=== PATIENT | female | born 1950 | race Caucasian/White ===

== ENCOUNTER 2016-11-04 09:56 | Emergency (ER) | payer MEDICARE, BC ==
--- NOTE | 2016-11-04 11:33 | UC ---
Throat Pain/Nasal David HPI - HPI Summary HPI Summary: Patient has a large area of puss on the left side of her throat. started having ear pain today. - History of Current Complaint Chief Complaint: UCRespiratory Time Seen by Provider: 11/04/16 11:20 Hx Obtained From: Patient ?: No Onset/Duration: Sudden Onset, Lasting Days Severity: Moderate Pain Intensity: 6 Pain Scale Used: 0-10 Numeric Cough: Nonproductive Associated Signs & Symptoms: Positive: Dysphagia - Epiglottits Risk Factors Epiglottis Risk Factors: Negative - Allergies/Home Medications Allergies/Adverse Reactions: Allergies Allergy/AdvReac Type Severity Reaction Status Date / Time Penicillins Allergy Vomiting Verified 07/19/16 13:13 Tetracycline Allergy See Comment Verified 07/19/16 13:13 PMH/Surg Hx/FS Hx/Imm Hx Previously Healthy: Yes Endocrine History Of: Reports: Thyroid Disease Denies: Diabetes Cardiovascular History Of: Denies: Cardiac Disorders, Hypertension Respiratory History Of: Denies: COPD, Asthma GI/ History Of: Denies: Ulcer - Surgical History Surgical History: Yes Surgery Procedure, Year, and Place: THYROID TUMOR-1979, CSECTION X 2 - Family History Known Family History: Positive: Hypertension Family History: NON CONTRIBUTORY - Social History Alcohol Use: None Substance Use Type: None Smoking Status (MU): Former Smoker When Did the Patient Quit Smoking/Using Tobacco: AT AGE 25 Review of Systems Constitutional: Negative Skin: Negative Eyes: Negative ENT: Sore Throat, Ear Ache Respiratory: Negative Cardiovascular: Negative Gastrointestinal: Negative Genitourinary: Negative Motor: Negative Neurovascular: Negative Musculoskeletal: Negative Neurological: Negative Psychological: Negative All Other Systems Reviewed And Are Negative: Yes Physical Exam Triage Information Reviewed: Yes Appearance: Well-Appearing, Well-Nourished, Pain Distress Vital Signs: Initial Vital Signs Temp 97.8 F 11/04/16 11:15 Pulse 57 11/04/16 11:15 Resp 18 11/04/16 11:15 Pulse Ox 100 11/04/16 11:15 Vital Signs Reviewed: Yes Eye Exam: Normal Eyes: Positive: Conjunctiva Clear ENT Exam: Normal ENT: Positive: Normal ENT inspection, Pharyngeal erythema, TMs normal, Tonsillar exudate - large tonsolith on left tonsil Dental Exam: Normal Respiratory Exam: Normal Respiratory: Positive: Chest non-tender, Lungs clear, Normal breath sounds Cardiovascular Exam: Normal Cardiovascular: Positive: RRR, No Murmur, Pulses Normal Abdomen Description: Positive: Nontender, No Organomegaly, Soft Bowel Sounds: Positive: Present Musculoskeletal: Positive: Strength Intact, ROM Intact, No Edema Neurological Exam: Normal Psychological Exam: Normal Skin Exam: Normal Throat Pain/Nasal Course/Dx - Course Course Of Treatment: hx obtianed, medications reviewed, exam performed, was able to dislodge the tonsil stone with end of qtip, pt tolerated well. instant relief. medication prescribed. - Differential Dx/Diagnosis Differential Diagnosis/HQI/PQRI: Influenza, Laryngitis, Pharyngitis, Sinusitis, Tonsillitis, URI Provider Diagnoses: pharyngitis. tonsilolith Discharge - Discharge Plan Condition: Stable Disposition: HOME Patient Education Materials: Pharyngitis (ED) Additional Instructions: continue with the salt water gargles. we were able to remove the tonsilolith without difficulty. take the 5 days of prednisone to reduce the inflammation in your throat and ears.
== END 2016-11-04 11:50 | disposition home or self-care (01) ==
LOC: UCEAST 09:56
DX: J02.9 Acute pharyngitis, unspecified (principal); J35.8 Other chronic diseases of tonsils and adenoids; Z87.891 Personal history of nicotine dependence
CPT/HCPCS: 99211; G0463

== ENCOUNTER 2019-02-18 12:46 | Emergency (ER) | payer MEDICARE, BC ==
[2019-02-18 13:17] VITALS: BP 105/63
--- NOTE | 2019-02-18 15:16 | ED ---
Throat Pain/Nasal Congestion - HPI Summary HPI Summary: 68-year-old female presents with ear pain for the past couple days. She admits to occasional posterior headache. States that she's been having some neck pain. No weakness. No difficulties with speech. no difficulty swallowing or sore throat. No chest pain or shortness breath. She does admits to blurry vision but states that has been having episodes blurry vision in the past. Nothing different about this blurry vision as states is her cataracts. She states her headache was more intense and is now less intense. - History of Current Complaint Chief Complaint: UCEar Time Seen by Provider: 02/18/19 14:34 - Allergies/Home Medications Allergies/Adverse Reactions: Allergies Allergy/AdvReac Type Severity Reaction Status Date / Time Penicillins Allergy Vomiting Verified 02/18/19 13:17 Tetracyclines Allergy stool turn Verified 02/18/19 13:17 white Home Medications: Home Medications Aspirin 325 MG TAB* 1 tab PO DAILY 02/18/19 [History Confirmed 02/18/19] PMH/Surg Hx/FS Hx/Imm Hx Endocrine/Hematology History: Reports: Hx Thyroid Disease Denies: Hx Diabetes Cardiovascular History: Denies: Hx Hypertension Respiratory History: Denies: Hx Asthma, Hx Chronic Obstructive Pulmonary Disease (COPD) GI History: Denies: Hx Ulcer - Cancer History Cancer Type, Location and Year: THYROID CA 1979 - Surgical History Surgery Procedure, Year, and Place: THYROID TUMOR-1979, CSECTION X 2 Infectious Disease History: No Infectious Disease History: Denies: Hx Clostridium Difficile, Hx Hepatitis, Hx Human Immunodeficiency Virus (HIV), Hx of Known/Suspected MRSA, Hx Shingles, Hx Tuberculosis, Hx Known/ Suspected VRE, Hx Known/Suspected VRSA, History Other Infectious Disease, Traveled Outside the [place] in Last 30 Days - Family History Known Family History: Positive: Hypertension Family History: NON CONTRIBUTORY - Social History Alcohol Use: None Substance Use Type: Reports: None Hx Tobacco Use: No Smoking Status (MU): Former Smoker Review of Systems Negative: Fever Positive: Ear Ache Negative: Chest Pain Negative: Shortness Of Breath Positive: Myalgia - neck pain Positive: Headache All Other Systems Reviewed And Are Negative: Yes Physical Exam Triage Information Reviewed: Yes Vital Signs On Initial Exam: Initial Vitals Temp Pulse Resp BP Pulse Ox 98.4 F 67 16 105/63 100 02/18/19 13:15 02/18/19 13:15 02/18/19 13:15 02/18/19 13:15 02/18/19 13:15 Vital Signs Reviewed: Yes Appearance: Positive: Well-Appearing Skin: Positive: Warm, Dry Head/Face: Positive: Normal Head/Face Inspection Eyes: Positive: Normal, EOMI, [place], Conjunctiva Clear ENT: Positive: Pharynx normal, TM bulging - left, TM red - left Neck: Positive: Supple, Nontender, No Lymphadenopathy. Negative: Nuchal Rigidity, Other: - full ROM neck Respiratory/Lung Sounds: Positive: Clear to Auscultation, Breath Sounds Present Cardiovascular: Positive: Normal, RRR Abdomen Description: Positive: Nontender, Soft Bowel Sounds: Positive: Present Musculoskeletal: Positive: Normal Neurological: Positive: Sensory/Motor Intact, Alert, Oriented to Person Place, Time, CN Intact II-III, Normal Gait Psychiatric: Positive: Normal - Garrett Coma Scale Best Eye Response: 4 - Spontaneous Best Motor Response: 6 - Obeys Commands Best Verbal Response: 5 - Oriented Coma Scale Total: 15 Diagnostics - Vital Signs Vital Signs Temp Pulse Resp BP Pulse Ox 02/18/19 13:15 98.4 F 67 16 105/63 100 - Laboratory Lab Statement: Any lab studies that have been ordered have been reviewed, and results considered in the medical decision making process. - CT brain CT Interpretation Completed By: Radiologist Summary of CT Findings: no acute findings EENT Course/Dx - Course Course Of Treatment: 68-year-old female presents with ear pain for the past couple days. She admits to occasional posterior headache. States that she's been having some neck pain. No weakness. No difficulties with speech. no difficulty swallowing or sore throat. No chest pain or shortness breath. She does admits to blurry vision but states that has been having episodes blurry vision in the past. Nothing different about this blurry vision as states is her cataracts. She states her headache was more intense and is now less intense. On exam has normal neuro exam. No focal defect noted. Left ear edematous and erythematous. will headache got CT. CT brain normal. Full range of motion of the neck. No fever. no signs of meningitis. we'll have follow-up with primary. warned if anything changes to go to the ER. We'll treat with azithromycin for ear infection. Patient understands agrees with plan. - Differential Diagnoses Differential Diagnoses: Otitis Externa, Otitis Media, URI/Bronchitis - Diagnoses Provider Diagnoses: Otitis media Discharge - Sign-Out/Discharge Documenting (check all that apply): Patient Departure All imaging exams completed and their final reports reviewed: Yes - Discharge Plan Condition: Good Disposition: HOME Prescriptions: Azithromycin TAB* [Zithromax TAB (Z-SUNITA) 250 mg #6 tabs] 2 tab PO .TODAY, THEN 1 DAILY #1 sunita Patient Education Materials: Ear Infection (ED) Referrals: No Primary Care Phys,NOPCP [Primary Care Provider] - Additional Instructions: take azithromycin two tablets day 1, 1 tablet day 2-5, Take tyenlol as needed for pain apply heat or ice to neck Follow up with primary within 5 days Return to ED if develop any new or worsening symptoms - Billing Disposition and Condition Condition: GOOD Disposition: Home
== END 2019-02-18 15:32 | disposition home or self-care (01) ==
LOC: UCEAST 12:46
DX: H66.92 Otitis media, unspecified, left ear (principal); E07.9 Disorder of thyroid, unspecified; Z88.1 Allergy status to other antibiotic agents; Z88.0 Allergy status to penicillin; Z87.891 Personal history of nicotine dependence
CPT/HCPCS: 70450; 99212; G0463

== ENCOUNTER 2019-08-17 09:47 | Emergency (ER) | payer MEDICARE, BC ==
--- OUTSIDE RECORDS SUMMARY | 2019-08-17 09:59 | XMS REPORT | Continuity of Care Document ---
:1950 External Reference #:[id number] Author Name Julienne Shine M.D. (transmitted by agent of provider Inge Simmons) Address [address] [facility] [place] [address] Care Team Providers Name Role Phone Henrique Kaiser MD - Family Care Team Information [employer] Machine Operator [phone] Medicine Problems Active Problems Provider Date Localized, primary osteoarthritis of the pelvic Julienne Shine M.D. Onset: region and thigh Social History Type Date Description Comments Sex Unknown Tobacco Use Start: Unknown End: Unknown Patient is a former smoker Smoking Status Reviewed: 08/15/19 Patient is a former smoker Allergies, Adverse Reactions, Alerts Active Allergies Reaction Severity Comments Date Penicillin severe 08/15/2019 Medications Description No Active Medications Immunizations Description No Information Available Vital Signs Date Vital Result Comment 08/15/2019 2:28pm Height 62 inches 5'2" Weight 171.00 lb Heart Rate 74 /min BP Systolic 156 mmHg BP Diastolic 82 mmHg Body Temperature 97.9 F Pain Level 5 BMI (Body Mass Index) 31.3 kg/m2 Results Description No Information Available Procedures Description No Information Available Medical Devices Description No Information Available Encounters Description No Information Available Assessments Date Code Description Provider 08/15/2019 M25.552 Pain in left hip Julienne Shine M.D. 08/15/2019 M16.12 Unilateral primary osteoarthritis, left hip Julienne Shine M.D. Plan of Treatment 08/15/2019 - Julienne Shine M.D.M25.552 Pain in left hipFollow up:Follow up: 7- 10 days before [id number] Unilateral primary osteoarthritis, left hip Functional Status Description No Information Available Mental Status Description No Information Available Referrals Description No Information Available
--- OUTSIDE RECORDS SUMMARY | 2019-08-17 09:59 | XMS REPORT | Continuity of Care Document ---
:1950 External Reference #:[id number] Author Name Henrique Kaiser MD Address [address] [place] [address] Care Team Providers Name Role Phone Henrique Kaiser MD - Family Care Team Information Yard Brakeman Medicine Problems Description No Information Available Social History Type Date Description Comments Sex Unknown Tobacco Use Start: Unknown End: Unknown Patient is a former smoker Smoking Status Reviewed: 08/01/19 Patient is a former smoker Allergies, Adverse Reactions, Alerts Active Allergies Reaction Severity Comments Date Penicillin Abdominal pain, Diarrhea, Nausea Severe 08/01/2019 Medications Active Medications SIG Qnty Indications Ordering Provider Date Acetaminophen ER take one tablet Unknown 650mg three times a Tablets ER day as needed for pain Immunizations Description No Information Available Vital Signs Date Vital Result Comment 08/01/2019 3:04pm BP Systolic 126 mmHg BP Diastolic 88 mmHg Heart Rate 74 /min Body Temperature 98.4 F Respiratory Rate 16 /min Height 60.5 inches 5'0.50" Weight 167.00 lb BMI (Body Mass Index) 32.1 kg/m2 Results Description No Information Available Procedures Description No Information Available Medical Devices Description No Information Available Encounters Description No Information Available Assessments Date Code Description Provider 08/01/2019 M16.12 Unilateral primary osteoarthritis, left Henrique Kaiser MD hip Plan of Treatment 08/01/2019 - Henrique Kaiser, [id number] Unilateral primary osteoarthritis, left hipAllComments:Medication Management Patient Understands medications she's taking? Yes No Are there Barriers to Adherence? Yes No Has the patient been asked about herbal supplements and therapies, and OTC meds? Yes No Functional Status Description No Information Available Mental Status Description No Information Available Referrals Refer to Reason for Referral Status Appt Date Julienne Shine MD left hip pain /OA jw Created 08/15/2019 [facility] [address] [address] [phone]
--- NOTE | 2019-08-17 10:30 | ED ---
Shortness of Breath - HPI Summary HPI Summary: Pt is a 69 y/o F presenting to the ED with a chief complaint of shortness of breath. She states she had a recent URI over the past couple of weeks, and began feeling better about 3 days ago. However, her shortness of breath did not resolve, and it is notably worse in the morning. She also notes a subjective fever, nonproductive cough, and fatigue. She denies chest pain. No exertional dyspnea. No hx CHF. States her BP is high when she is sick and normal when she feels OK. Daughter states she does not follow up often w PCP. No hx PE, DVT. No orthopnea/PND. Ambulates w walker - History of Current Complaint Chief Complaint: EDShortnessOfBreath Time Seen by Provider: 08/17/19 10:04 Hx Obtained From: Patient Onset/Duration: Gradual Onset, Lasting Weeks, Still Present Timing: Constant Current Severity: Moderate Dyspnea At: Rest Aggravating Factors: Nothing Alleviating Factors: Nothing Associated Signs & Symptoms: Cough (Nonproductive), Fever - subjective - Allergy/Home Medications Allergies/Adverse Reactions: Allergies Allergy/AdvReac Type Severity Reaction Status Date / Time Penicillins Allergy Vomiting Verified 08/17/19 09:52 Home Medications: Home Medications Ascorbic Acid TAB* [Vitamin C TAB*] 500 mg PO DAILY 08/17/19 [History Confirmed 08/17/19] Thiamine TAB* [Vitamin B-1 TAB*] 50 mg PO DAILY 08/17/19 [History Confirmed ] Vitamin E CAP* 200 unit PO DAILY 08/17/19 [History Confirmed 08/17/19] PMH/Surg Hx/FS Hx/Imm Hx Previously Healthy: Yes Endocrine/Hematology History: Reports: Hx Thyroid Disease Denies: Hx Diabetes Cardiovascular History: Denies: Hx Hypertension Respiratory History: Denies: Hx Asthma, Hx Chronic Obstructive Pulmonary Disease (COPD) GI History: Denies: Hx Ulcer - Cancer History Cancer Type, Location and Year: THYROID CA 1979 - Surgical History Surgery Procedure, Year, and Place: THYROID TUMOR-1979, CSECTION X 2 Infectious Disease History: No Infectious Disease History: Denies: Hx Clostridium Difficile, Hx Hepatitis, Hx Human Immunodeficiency Virus (HIV), Hx of Known/Suspected MRSA, Hx Shingles, Hx Tuberculosis, Hx Known/ Suspected VRE, Hx Known/Suspected VRSA, History Other Infectious Disease, Traveled Outside the [place] in Last 30 Days - Family History Known Family History: Positive: Hypertension - Social History Alcohol Use: Rare Substance Use Type: Reports: None Hx Tobacco Use: No Smoking Status (MU): Former Smoker Review of Systems Positive: Fever - subjective, Fatigue Negative: Chest Pain Positive: Shortness Of Breath, Cough All Other Systems Reviewed And Are Negative: Yes Physical Exam - Summary Physical Exam Summary: Constitutional: Well-developed, Well-nourished, Alert. (-) Distressed Skin: Warm, Dry HENT: Normocephalic; Atraumatic Eyes: Conjunctiva normal Neck: Musculoskeletal ROM normal neck. (-) JVD, (-) Stridor, (-) Nuchal rigidity Cardio: Rhythm regular, rate normal, Heart sounds normal; Intact distal pulses; Radial pulses are 2+ and symmetric. (-) Murmur Pulmonary/Chest wall: Effort normal. (-) Respiratory distress, (-) Wheezes, (-) Rales Abd: Soft, (-) tenderness, (-) Distension, (-) Guarding, (-) Rebound Musculoskeletal: (-) Edema Lymph: (-) Cervical adenopathy Neuro: Alert, Oriented x3 Psych: Mood and affect Normal Triage Information Reviewed: Yes Vital Signs On Initial Exam: Initial Vitals Temp Pulse Resp BP Pulse Ox 97.7 F 68 16 189/97 97 08/17/19 09:48 08/17/19 09:48 08/17/19 09:48 08/17/19 09:48 08/17/19 09:48 Vital Signs Reviewed: Yes Procedures - Sedation Patient Received Moderate/Deep Sedation with Procedure: No Diagnostics - Vital Signs Vital Signs Temp Pulse Resp BP Pulse Ox 08/17/19 10:21 16 08/17/19 09:48 97.7 F 68 16 189/97 97 - Laboratory Result Diagrams: 08/17/19 10:54 08/17/19 10:54 Lab Statement: Any lab studies that have been ordered have been reviewed, and results considered in the medical decision making process. - Radiology CXR Radiology Interpretation Completed By: Radiologist Summary of Radiographic Findings: Stigmata of obstructive lung disease. No acute pulmonary or cardiac process evident. ED physician has reviewed this report. - EKG 1010 Cardiac Rate: NL - 60bpm EKG Rhythm: Sinus Rhythm ST Segment: Normal Ectopy: None Summary of EKG Findings: An EKG at 1010 reveals normal sinus rhythm at 60bpm with nml axis, nml intervals, and T-wave inversions in lead III. No STEMI. No acute changes. ED physician has reviewed and interpreted this report. Re-Evaluation - Re-Evaluation 1st re-eval Re-Evaluation Time: 12:05 Change: Improved Comment: Pt feels fine and has been ambulating to the restroom. Will give 10mg Hydralazine for her BP. Second Eval Re-Evaluation Time: 12:50 Change: Improved - BP 150's. Given lisinopril to go home w. Course/Dx - Course Course Of Treatment: 69 y/o F p/w SOB. Shortness of breath ddx: Most likely deconditioning from recent illness. Also consider: COPD exacerbation/asthma - no h/o COPD, no wheezing on exam. Low suspicion. PNA - no sputum production, no fevers or chills. No leukocytosis. CXR w/o infiltrate. Low suspicion. PTX - breath sounds equal, no risk factors for PTX, CXR w/o e/o PTX. ACS - no CP, no EKG changes, initial trop not elevated. Non exertional dyspnea. Low suspicion. CHF - no h/o CHF, no VALENZUELA or orthopnea, no BLE edema, CXR w/o pulmonary edema. PE - no risk factors for PE, no unilateral leg swelling. BP elevated to 200s. Will give hydralazine send home w Lisinopril. Needs to follow up w PCP. - Diagnoses Provider Diagnoses: Shortness of breath, Hypertension Discharge ED - Sign-Out/Discharge Documenting (check all that apply): Patient Departure - Discharge Plan Condition: Stable Disposition: HOME Prescriptions: Lisinopril TAB* [Prinivil TAB 5 MG*] 5 mg PO DAILY 30 Days #30 tab Patient Education Materials: Hypertension (ED), Shortness of Breath (ED) Referrals: Henrique Kaiser MD [Primary Care Provider] - Additional Instructions: You were seen in the emergency department for shortness of breath. Your EKG ( heart tracing), labs and chest x-ray did not show any cause for this. Important that you follow up with you primary care doctor in the next 1-2 days to help schedule an outpatient stress test to evaluate your heart. Yourr blood pressure is very high here, so we started you on medication, lisinopril and a rare side effect of this is swelling of the lips or throat, if you have a sensation that this is happening, difficulty swallowing or breathing please seek immediate medical attention. Please return to the emergency department for continued chest pain, trouble breathing, passing out, or if you're concerned. - Billing Disposition and Condition Condition: STABLE Disposition: Home - Attestation Statements Document Initiated by Scribe: Yes Documenting Scribe: Patti Castillo Provider For Whom Anton is Documenting (Include Credential): Toan Mensah MD. Scribe Attestation: IPatti, scrwendieed for Toan Mensah MD. on 08/17/19 at 1309. Scribe Documentation Reviewed: Yes Provider Attestation: The documentation as recorded by the scribe, Patti Castillo accurately reflects the service I personally performed and the decisions made by , Toan Mensah MD. Status of Scribe Document: Viewed
[2019-08-17 11:04] LABS: ABS Lymphocytes 0.9 10^3/ul (1.0-4.8); ABS Monocytes 0.3 10^3/ul (0-0.8); ABS Neutrophils 3.2 10^3/ul (1.5-7.7); Eosinophil % 0.4 %; Hematocrit 37 % (35-47); Hemoglobin 12.3 g/dL (12.0-16.0); Lymphocyte % 20.5 %; Mean Corpuscular HGB Conc 34 g/dL (31-36); Mean Corpuscular Hemoglobin 30 pg (27-31); Mean Corpuscular Volume 89 fL (80-97); Mean Platelet Volume 7.6 fL (7.4-10.4); Platelet Count 271 10^3/uL (150-450); Red Blood Count 4.11 10^6 /uL (3.70-4.87); Red Cell Distribution Width 14 % (10-15); White Blood Count 4.5 10^3/uL (3.5-10.8)
[2019-08-17 11:22] LABS: Troponin I 0.01 ng/mL (<0.04)
[2019-08-17 11:24] LABS: Albumin/Globulin Ratio 1.6 (1-3); BUN/Creatinine Ratio 17.1 (8-20); Calcium 9.4 mg/dL (8.6-10.3); EGFR African American 99.8 (>60); EGFR Non-African American 82.5 (>60); Globulin 2.5 g/dL (2-4); Total Bilirubin 0.9 mg/dL (0.2-1.0); Total Protein 6.5 g/dL (6.4-8.9)
[2019-08-17] MEDS: hydrALAZINE IV* 20 MG/ML VIAL IV SLOW PU ONE (12:14)
[2019-08-17 13:14] VITALS: BP 170/72
== END 2019-08-17 13:14 | disposition home or self-care (01) ==
LOC: ED 09:47
DX: R06.02 Shortness of breath (principal); I10 Essential (primary) hypertension; E03.9 Hypothyroidism, unspecified; Z87.891 Personal history of nicotine dependence; Z79.899 Other long term (current) drug therapy; Z88.0 Allergy status to penicillin
CPT/HCPCS: 36415; 71046; 80053; 83880; 84484; 85025; 93005; 96374; 99283; J0360

== ENCOUNTER 2019-10-11 10:33 | Inpatient (IN) | payer MEDICARE, BC ==
--- NOTE | 2019-09-30 18:35 | HP ---
HISTORY AND PHYSICAL: DATE OF ADMISSION/SURGERY: 10/11/19 DATE OF OFFICE VISIT: 09/21/19 SURGEON: Julienne Shine MD * (DICTATED BY TESS PANIAGUA) PROCEDURE: Left total hip arthroplasty. CHIEF COMPLAINT: Left hip pain. HISTORY OF PRESENT ILLNESS: Ms. Murphy is a 69-year-old female with continued complaints of left hip pain. She has failed conservative treatment and elected to proceed with a left total hip arthroplasty. PAST MEDICAL HISTORY: Hypertension and thyroid cancer. PAST SURGICAL HISTORY: Partial thyroidectomy, x2. CURRENT MEDICATIONS: 1. Multivitamin. 2. Lisinopril 5 mg a day. ALLERGIES: PENICILLIN. FAMILY HISTORY: Stroke. SOCIAL HISTORY: She is a 69-year-old female. She lives with her . She does not smoke, use drugs or alcohol. REVIEW OF SYSTEMS: A complete 14-point review of systems was reviewed with the patient. It was all negative and noncontributory. PHYSICAL EXAMINATION GENERAL: She is well developed, well nourished, in no acute distress. VITAL SIGNS: She stands 5 feet 3 inches tall, weighs 170 pounds. Blood pressure is 144/66, heart rate is 60. HEENT: Normocephalic, atraumatic. NECK: Supple. No palpable lymph nodes. PULMONARY: The lungs are clear to auscultation bilaterally. CARDIO: Regular rate and rhythm. Strong S1, S2. ABDOMEN: Soft, nontender, nondistended. NEUROLOGICAL: She is alert and oriented x3. MUSCULOSKELETAL: Left lower extremity: Skin is intact. There are no open wounds or abrasions. She walks with an antalgic-type gait favoring her left hip. She has 10 to 70 degrees of hip flexion. She lacks 5 degrees from neutral and has 5 degrees more of external rotation. All range of motion of the hip is causing severe groin pain. She is able to dorsiflex and plantar flex. She has 2+ dorsalis pedis pulse. Intact sensation. ASSESSMENT AND PLAN: Ms. Murphy is a 69-year-old female with severe end-stage osteoarthritis of the left hip. She has failed conservative treatment and elected to proceed with a left total hip arthroplasty. The surgery is scheduled for 10/11/[address] Shine has discussed the risks and benefits of the surgery at today's visit and all of her questions were answered. She will follow up with Dr. Shine 2 weeks after the surgery. TESS PANIAGUA [id number]/CPS #: [id number] MTDD
[~2019-10-11 10:33] MED LIST: Buffered Lidocaine 1% SYRIN* 1 ML/SYRINGE INTRADERM ONE; Famotidine IV* 10 MG/ML 2 ML (20 mg) IV ONE; Lactated Ringers 1000 ML Bag* 1,000 ML IV SCH; Tranexamic Acid 1,000 MG in NS 0.9% 50 ML* (outpatient use) IV SCH
--- OUTSIDE RECORDS SUMMARY | 2019-10-11 10:39 | XMS REPORT | Continuity of Care Document ---
:1950 External Reference #:[id number] Author Name Julienne Shine M.D. 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 Onset: region and thigh Social History Type Date Description Comments Sex Unknown Tobacco Use Start: Unknown End: Unknown Patient is a former smoker Smoking Status Reviewed: 09/21/19 Patient is a former smoker Allergies, Adverse Reactions, Alerts Active Allergies Reaction Severity Comments Date Penicillin severe 08/15/2019 Medications Active Medications SIG Qnty Indications Ordering Provider Date Lisinopril Take 1 Tablet By Unknown 5mg Tablets Mouth Once Daily Immunizations Description No Information Available Vital Signs Date Vital Result Comment 09/21/2019 9:28am Height 62 inches 5'2" Weight 170.00 lb Heart Rate 60 /min BP Systolic 144 mmHg BP Diastolic 66 mmHg Respiratory Rate 18 /min Pain Level 4 BMI (Body Mass Index) 31.1 kg/m2 08/15/2019 2:28pm Height 62 inches 5'2" Weight 171.00 lb Heart Rate 74 /min BP Systolic 156 mmHg BP Diastolic 82 mmHg Body Temperature 97.9 F Pain Level 5 BMI (Body Mass Index) 31.3 kg/m2 Results Test Acquired Date Facility Test Result H/L Range Note Urinalysis Profile 09/28/2019 [facility] Urine Color Yellow [address] [place] [address] [phone] Urine Appearance Clear Urine Specific [place] 1.013 Normal 1.010-1.030 Urine pH 5.0 Normal 5-9 Urine Urobilinogen Negative Negative Urine Ketones Negative Negative Urine Protein Negative Negative Urine Leukocytes Negative Negative Urine Blood Negative Negative Urine Nitrite Negative Negative Urine Bilirubin Negative Negative Urine Glucose Negative Negative Inr/Protime 09/28/2019 [facility] Inr 0.97 Normal 0.82-1.[address] [place] [address] [phone] Laboratory test 09/28/2019 [facility] Partial 32.5 Normal 26.0 -38.[address] [place] [address] Time PTT [phone] CBC Auto Diff 09/28/2019 [facility] White Blood 4.8 10^3/uL Normal 3.5-10.[address] [place] [address] [phone] Red Blood Count 4.28 10^6/uL Normal 3.70-4.87 Hemoglobin 12.9 g/dL Normal 12.0-16.0 Hematocrit 38 % Normal 35-47 Mean Corpuscular Volume 90 fL Normal 80-97 Mean Corpuscular Hemoglobin 30 pg Normal 27-31 Mean Corpuscular HGB Conc 34 g/dL Normal 31-36 Red Cell Distribution Width 15 % Normal 10-15 Platelet Count 255 10^3/uL Normal 150-450 Mean Platelet Volume 8.1 fL Normal 7.4-10.4 Abs Neutrophils 3.2 10^3/uL Normal 1.5-7.7 Abs Lymphocytes 1.2 10^3/uL Normal 1.0-4.8 Abs Monocytes 0.4 10^3/uL Normal 0-0.8 Abs Eosinophils 0.0 10^3/uL Normal 0-0.6 Abs Basophils 0.0 10^3/uL Normal 0-0.2 Abs Nucleated RBC 0.0 10^3/uL Granulocyte % 67.0 % Lymphocyte % 24.3 % Monocyte % 7.5 % Eosinophil % 0.7 % Basophil % 0.5 % Nucleated Red Blood Cells % 0.0 Comp Metabolic 09/28/2019 [facility] Sodium 139 mmol/L Normal 135-[address] [place] [address] [phone] Potassium 4.5 mmol/L Normal 3.5-5.0 Chloride 103 mmol/L Normal 101-111 Co2 Carbon Dioxide 29 mmol/L Normal 22-32 Anion Gap 7 mmol/L Normal 2-11 Glucose 85 mg/dL Normal 70-100 Blood Urea Nitrogen 17 mg/dL Normal 6-24 Creatinine 0.74 mg/dL Normal 0.51-0.95 BUN/Creatinine Ratio 23.0 High 8-20 Calcium 9.9 mg/dL Normal 8.6-10.3 Total Protein 6.6 g/dL Normal 6.4-8.9 Albumin 4.4 g/dL Normal 3.2-5.2 Globulin 2.2 g/dL Normal 2-4 Albumin/Globulin Ratio 2.0 Normal 1-3 Total Bilirubin 1.00 mg/dL Normal 0.2-1.0 Alkaline Phosphatase 69 U/L Normal 34-104 Alt 19 U/L Normal 7-52 Ast 18 U/L Normal 13-39 Egfr Non- 77.4 >60 Egfr 93.6 >60 2 Type & Screen 09/28/2019 [facility] Patient Blood Type A Positive [address] [place] [address] [phone] Antibody Screen NEGATIVE Urine Culture And 09/28/2019 [facility] Urine Culture SEE RESULT [address] [place] [address] [phone] 1 Standard intensity warfarin therapeutic range: 2.0-3.0 High intensity warfarin therapeutic range: 2.5-3.5 2 Because ethnic data is not always readily available, this report includes an eGFR for both -Americans and non- Americans. The National Kidney Disease Education Program (NKDEP) does not endorse the use of the MDRD equation for patients that are not between the ages of 18 and 70, are , have extremes of body size, muscle mass, or nutritional status, or are non- or non-. According to the National Kidney Foundation, irrespective of diagnosis, the stage of the disease is based on the level of kidney function: Stage Description GFR(mL/min/1.73 m(2)) 1 Kidney damage with normal or decreased GFR 90 2 Kidney damage with mild decrease in GFR 60-89 3 Moderate decrease in GFR 30-59 4 Severe decrease in GFR 15-29 5 Kidney failure <15 (or dialysis) 3 SEE RESULT BELOW Name: TONYA MURPHY : [address]: Julienne Shine MD Acct: [id number] Unit: [id number] AGE: 69 Location: LAB Re09/28/19 SEX: F Status: REG REF SPEC: [id number] VAHID: 09/28/[address]: Julienne Shine MD REQ: [id number] RECD: 09/28/19 STATUS: COMP _ SOURCE: URINE SPDESC: ORDERED: Urine Culture QUERIES: Urine Source: Clean Catch Procedure Result Reported Site Urine Culture Final 09/29/19- 1204 ML No Growth (<1,000 CFU/mL) * ML - Main Lab . END OF REPORT DEPARTMENT OF PATHOLOGY, [address] [place] [address] Alonzo Mata M.D. Director [facility] # [id number] Procedures Description No Information Available Medical Devices Description No Information Available Encounters Type Date Location Provider Dx Diagnosis Office Visit 08/15/2019 [facility] Julienne Shine M25.552 [facility] in [facility] Unilateral primary osteoarthritis, left hip Assessments Date Code Description Provider 09/21/2019 M25.552 Pain in left hip Julienne Shine M.D. 09/21/2019 M16.12 Unilateral primary osteoarthritis, left hip Julienne Shine M.D. 08/15/2019 M25.552 Pain in left hip Julienne Shine M.D. 08/15/2019 M16.12 Unilateral primary osteoarthritis, left hip Julienne Shine M.D. Plan of Treatment Future Appointment(s):10/24/2019 9:45 am - Julienne Shine M.D. at [facility]10/11/2019 2:30 pm - Terrance Comer PA-C at [facility]10/11/2019 2:30 pm - TESS Lucia at [facility]10/11/2019 2:30 pm - Julienne Shine M.D. at [facility]09/21/2019 - Julienne Shine M.D.M25.552 Pain in left hipFollow up:Follow up: 2 weeks after [id number] Unilateral primary osteoarthritis, left hip Functional Status Description No Information Available Mental Status Description No Information Available Referrals Description No Information Available
--- OUTSIDE RECORDS SUMMARY | 2019-10-11 10:39 | XMS REPORT | Continuity of Care Document ---
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 Medicine Problems Description No Information Available Social [...] Tablets ER day as needed for pain Lisinopril 1 by mouth every Unknown 5mg Tablets day Immunizations Description No Information Available Vital Signs Date Vital Result Comment 08/19/2019 8:07am BP Systolic 118 mmHg BP Diastolic 76 mmHg Heart Rate 62 /min Body Temperature 97.9 F Respiratory Rate 16 /min O2 % BldC Oximetry 99 % Height 60.5 inches 5'0.50" 08/01/2019 3:04pm BP Systolic 126 mmHg BP Diastolic 88 mmHg Heart Rate 74 /min Body Temperature 98.4 F Respiratory Rate 16 /min Height 60.5 inches 5'0.50" Weight 167.00 lb BMI (Body Mass Index) 32.1 kg/m2 Results Test Date Facility Test Result H/L Range Note CBC Auto Diff 08/17/2019 [facility] White Blood Count 4.5 10^3/uL Normal 3.5- 10.8 Red Blood Count 4.11 10^6/uL Normal 3.70-4.87 Hemoglobin 12.3 g/dL Normal 12.0-16.0 Hematocrit 37 % Normal 35-47 Mean Corpuscular Volume 89 fL Normal 80-97 Mean Corpuscular Hemoglobin 30 pg Normal 27-31 Mean Corpuscular HGB Conc 34 g/dL Normal 31-36 Red Cell Distribution Width 14 % Normal 10-15 Platelet Count 271 10^3/uL Normal 150-450 Mean Platelet Volume 7.6 fL Normal 7.4-10.4 Abs Neutrophils 3.2 10^3/uL Normal 1.5-7.7 Abs Lymphocytes 0.9 10^3/uL Low 1.0-4.8 Abs Monocytes 0.3 10^3/uL Normal 0-0.8 Abs Eosinophils 0.0 10^3/uL Normal 0-0.6 Abs Basophils 0.0 10^3/uL Normal 0-0.2 Abs Nucleated RBC 0.0 10^3/uL Granulocyte % 71.8 % Lymphocyte % 20.5 % Monocyte % 6.7 % Eosinophil % 0.4 % Basophil % 0.6 % Nucleated Red Blood Cells % 0.0 Laboratory test finding 08/17/2019 [facility] Troponin I 0.01 ng/mL <0.04 1 Comp Metabolic Panel 08/17/2019 [facility] Sodium 139 mmol/L Normal 135-145 Potassium 4.0 mmol/L Normal 3.5-5.0 Chloride 107 mmol/L Normal 101-111 Co2 Carbon Dioxide 28 mmol/L Normal 22-32 Anion Gap 4 mmol/L Normal 2-11 Glucose 94 mg/dL Normal 70-100 Blood Urea Nitrogen 12 mg/dL Normal 6-24 Creatinine 0.70 mg/dL Normal 0.51-0.95 BUN/Creatinine Ratio 17.1 Normal 8-20 Calcium 9.4 mg/dL Normal 8.6-10.3 Total Protein 6.5 g/dL Normal 6.4-8.9 Albumin 4.0 g/dL Normal 3.2-5.2 Globulin 2.5 g/dL Normal 2-4 Albumin/Globulin Ratio 1.6 Normal 1-3 Total Bilirubin 0.90 mg/dL Normal 0.2-1.0 Alkaline Phosphatase 62 U/L Normal 34-104 Alt 18 U/L Normal 7-52 Ast 17 U/L Normal 13-39 Egfr Non- 82.5 >60 Egfr 99.8 >60 2 Laboratory test finding 08/17/2019 [facility] B-Type Natriuretic Peptide 76 pg/mL <=100 BNP 1 Troponin-I testing on Plasma Separator Tubes (PST) has a known false positive rate of 0.20-0.40%. All positive troponins reflex immediately to secondary confirmatory testing. Using the [employer] DxI 800 Access Immunoassay systems, the 99th percentile upper reference limit was demonstrated to be < 0.03 ng/mL. 2 Because ethnic data is not always [...] 15-29 5 Kidney failure <15 (or dialysis) Procedures Description No Information Available Medical Devices Description No Information Available Encounters Type Date Location Provider Dx Diagnosis Office Visit 08/01/2019 [facility] Office Henrique Henry M16.12 Unilateral primary 3:10p MD Job osteoarthritis, left hip Assessments Date Code Description Provider 08/19/2019 R03.0 Elevated blood-pressure reading, without Henrique Kaiser MD diagnosis of hypertension 08/01/2019 M16.12 Unilateral primary osteoarthritis, left Henrique Kaiser MD hip Plan of Treatment Future Appointment(s):09/15/2019 8:00 am - Henrique Kaiser MD at Main Nocrqu4708/19/2019 - Henrique Kaiser MDR03.0 Elevated blood-pressure reading , without diagnosis of hypertensionFollow up:Nurse visit for bp cuff check.AllComments:Medication Management Patient Understands medications she's taking? Yes No Are there Barriers to Adherence? Yes No Has the patient been asked about herbal supplements and therapies, and OTC meds? Yes No Functional Status Description No Information Available Mental Status Description No Information Available Referrals Refer to Reason for Referral Status Appt Date Julienne Shine MD left hip pain /OA jw Scheduled 08/15/2019 [facility] [address] [address] [phone]
--- OUTSIDE RECORDS SUMMARY | 2019-10-11 10:39 | XMS REPORT | Continuity of Care Document ---
:1950 External Reference #:[id number] Author Name Julienne Shine M.D. 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 09/21/2019 M16.12 Unilateral primary osteoarthritis, left hip Julienne Shine M.D. 08/15/2019 M25.552 Pain in left hip Julienne Shine M.D. 08/15/2019 M16.12 Unilateral primary osteoarthritis, left hip Julienne Shine M.D. Plan of Treatment Future Appointment(s):10/24/2019 9:45 am - Julienne Shine M.D. at [facility] at Skjcjf0210/11/2019 2:30 pm - Terrance Comer PA-C at [facility] at Wbolfr4610/11/2019 2:30 pm - TESS Lucia at [facility] at Xpbtmn6910/11/2019 2:30 pm - Julienne Shine M.D. at [facility] at Frxmyh4909/21/2019 - Julienne Shine M.D.M25.552 Pain in left hipFollow up:Follow up: 2 weeks after izteboxU00.12 Unilateral primary osteoarthritis, left hip Functional Status Description No Information Available Mental Status Description No Information Available Referrals Description No Information Available
[2019-10-11] MEDS ORDERED: Clindamycin 900 MG/D5W BAG(*) 900 MG/50 ML BAG IVPB ONE (10:55)
[2019-10-11] MEDS ORDERED: Famotidine IV* 10 MG/ML 2 ML (20 mg) ONE (10:55)
[2019-10-11] MEDS ORDERED: ROPIVACAINE 5 MG/ML 30 ML BTL (0.5%) ONE (12:42)
[2019-10-11] MEDS ORDERED: Lidocaine 1% MPF ** 5 ML VIAL ONE (12:42)
[2019-10-11] MEDS ORDERED: Midazolam* 1 MG/ML 5 ML VIAL (5 MG) ONE (12:57)
[2019-10-11] MEDS ORDERED: KETAMINE HCL* 50 MG/ML 10 ML VIAL ONE (14:01)
[2019-10-11] MEDS ORDERED: Glycopyrrolate IV* 0.2 MG/ML 1 ML VIAL ONE (14:47)
[2019-10-11] MEDS ORDERED: EPHEDrine (Pressors)* 50 MG/ML VIAL ONE (14:47)
[2019-10-11] MEDS ORDERED: Propofol* 10 MG/ML 20 ML BTL ONE ×2 (15:06)
[2019-10-11] MEDS ORDERED: Ketorolac INJ* 30 MG/ML 1 ML VIAL ONE (15:06)
[2019-10-11] MEDS ORDERED: Ondansetron INJ* 2 MG/ML VIAL ONE (15:06)
[2019-10-11] MEDS ORDERED: Dexamethasone IV* 4 MG/ML 1 ML (4 MG) ONE (15:06)
[2019-10-11] MEDS ORDERED: HYDROmorphone INJ1* 1 MG/ML SYRINGE ONE (15:50)
[2019-10-11] MEDS ORDERED: diPHENhydraMINE PO* 25 MG PO PRN (16:13)
[2019-10-11] MEDS ORDERED: traMADol TAB* 50 MG PO PRN (16:13)
[2019-10-11] MEDS ORDERED: Ondansetron ODT TAB* 4 MG PO PRN (16:13)
[2019-10-11] MEDS ORDERED: Ondansetron TAB* 4 MG PO PRN (16:13)
[2019-10-11] MEDS ORDERED: Cyclobenzaprine TAB* 10 MG PO PRN (16:13)
[2019-10-11] MEDS ORDERED: Polyethylene Glycol 3350* 17 GM PACKET PO PRN (16:13)
[2019-10-11] MEDS ORDERED: Ondansetron INJ* 2 MG/ML VIAL IV PRN (16:13)
[2019-10-11] MEDS ORDERED: diPHENhydraMINE IV* 50 MG/ML 1 ml VIAL (BENADRYL) IV PRN (16:13)
[2019-10-11] MEDS ORDERED: Magnesium Hydroxide LIQ* 30 ML UDC PO PRN (16:13)
[2019-10-11] MEDS ORDERED: oxyCODONE TAB* 5 MG TAB PO PRN (16:13)
[2019-10-11] MEDS ORDERED: Morphine INJ* 2 MG/ML 1 ML SYRINGE (TWO MG - NEW SYRINGE VERSION) IV PRN (16:13)
[2019-10-11] MEDS ORDERED: Acetaminophen TAB* 325 MG PO PRN (16:21)
[2019-10-11] MEDS ORDERED: Naloxone* 0.4 MG/ML 1 ML VIAL IV PRN (16:21)
[2019-10-11] MEDS ORDERED: DiMENhydriNATE IV* 50 MG/ML VIAL IV PUSH PRN (16:21)
[2019-10-11] MEDS ORDERED: HYDROmorphone INJ1* 1 MG/ML SYRINGE IV PRN (16:21)
[2019-10-11] MEDS ORDERED: hydrALAZINE IV* 20 MG/ML VIAL IV SLOW PU PRN (17:38)
[2019-10-11] MEDS: Lactated Ringers 1000 ML Bag* 1,000 ML IV SCH (17:54)
--- NOTE | 2019-10-11 18:21 | PN ---
Progress Note - Progress Note Date of Service: 10/11/19 Note: resting comfortably in recovery; pain well controlled; able to DF/PF, 2+ DP pulse and intact sensation, dressing c/d/i
--- NOTE | 2019-10-11 18:56 | OP ---
Operative Report - Blank - Operative Report Date of Operation: 10/11/19 Note: TONYA SANCHEZ 1950 Date Of Surgery: 10/11/19 Julienne Shine MD Client Care Consultant: Nesha PULIDO did help throughout the procedure with preparation of the hip, wound retraction, manipulation of the hip, and wound closure. Anesthesiologist: Veronica Gurrola MD Anesthesia Type: Spinal Preoperative Diagnosis: Left severe degenerative osteoarthritis of the hip Postoperative Diagnosis: As above Procedure Performed: Left Total Hip Arthroplasty Complications: None Specimen: Femoral head and acetabular reamings sent to pathology. Hardware used: This is uncemented Caroline total hip arthroplasty hardware for the femur a size 3 accolade II with 127 neck angle femoral component, for the acetabulum a size 46C trident II tritanium cluster hole shell, one 15 mm screw, for the insert a size 32C trident X3 polyethylen insert, and for the femoral head a size 32 + 0 ceramic biolox V40 femoral head. Brief history/Indication: TONYA SANCHEZ was known in clinic and had a history of severe left hip pain. She failed conservative treatment with anti- inflammatories, pain pills, intra-articular injections and physical therapy. She elected to undergo left total hip arthroplasty due to continued pain and decreased quality of life. Radiographs showed severe end stage osteoarthritis of the hip with bone on bone contact. Informed consent was obtained from the patient. She understood the risks of surgery included but were not limited to: bleeding, infection, damage to nearby structures, intraoperative fracture, nerve palsy, failure of the hardware, early loosening, stiffness or loss of motion, dislocation, leg length discrepancy, anesthesia complications, stroke, heart attack, blood clot and . She wished to proceed. Intra-Operative findings: Intraoperatively the patient was noted to have severe loss of cartilage of the acetabulum and femoral head. Description of the Procedure: TONYA SANCHEZ was identified in the preanesthesia unit. Her left hip was marked as the correct operative side. Informed consent was signed and placed in the chart. The patient was taken to the operating room and placed under anesthesia without complication. A craft catheter was placed. The patient was placed on the peg board with all bony prominences well padded. The left lower extremity was prepped and draped in the usual sterile fashion. Preoperative time-out was made to correctly identify the patient, side and site. Appropriate intraoperative antibiotics were given within one hour of incision. A standard posterior incision was made and carried sharply down to the lateral fascia. A new 10 blade was used to make an incision in the fascia in line with the skin incision. A charnley retractor was placed. The piriformis and conjoined tendons were identified and elevated off the posterolateral femur using electrocautery. These were tagged with number 5 Ethibond. Next electrocautery was used to make a posterolateral capsular flap and this was tagged with number 5 Ethibonds. The hip was carefully dislocated. Lesser trochanter to the center of the femoral head was measured at 55 mm. The oscillating saw was used to make the femoral neck cut. The femoral head was carefully removed. The femur was retracted anteriorly and the acetabular retractors were placed. Long-handled knife was used to sharply remove any remaining labrum from the acetabular rim. The acetabulum was sequentially reamed up to a size 46. A bleeding subchondral bone bed was obtained. A trial liner was placed and had excellent fit and stability. A 46C cup with one screw was placed and had excellent stability with appropriate anteversion and abduction angle. A size 32C liner was impacted into the acetabular shell. The liner was checked for stability and was stable. Next attention was turned to preparation of the femoral canal. A canal finder was used to enter the proximal femur. The femoral canal was sequentially broached up to a size 3 femoral broach trial. A trial neck and 32 + 0 trial femoral head was chosen. Lesser trochanter to center of the femoral head measurement was satisfactory. The hip was reduced and taken through a range of motion. The hip was stable in all positions with good soft tissue tension and appropriate leg lengths. The hip was dislocated and all trials were removed. The final implant chosen was a size 3 accolade II stem. This stem was impacted into the femoral canal without difficulty. The stem was stable with appropriate anteversion. The femoral head chosen was a 32 +0 ceramic head. The head was impacted onto the femoral neck without difficulty. The final lesser trochanter to center of the femoral head measurement was satisfactory. The hip was reduced and taken through a range of motion. The hip was stable in all positions with good soft tissue tension and appropriate leg lengths. The hip was copiously irrigated with sterile saline. The previously tagged capsule and tendons were repaired to the posterolateral femur through two trochanteric drill holes. The lateral fascia layer was closed using number 1 vicryls. The rest of the incision was closed in a layered fashion using 0 and 2-0 vicryls. The skin was closed using 3-0 monocryl suture and Dermabond. Sterile adaptic, 4x4s and paper tape was used to cover the incision. The patients anesthesia was reversed without difficulty. She was taken to the PACU in stable condition. Intended weight-bearing will be as tolerated with posterior hip precautions.
--- NOTE | 2019-10-11 20:05 | CONS ---
CONSULTATION REPORT: DATE OF CONSULT: 10/11/19 CONSULTING PROVIDER: Adolfo Ramires MD REQUESTING SERVICE: Dr. Shine of Orthopedics. REASON FOR CONSULT: Medical co-morbidity management, namely hypertension in the setting of elective left total hip replacement. HISTORY OF PRESENT ILLNESS: Farhana Murphy is a 69-year-old female with past medical history of recently diagnosed hypertension and general avoidance of doctors. She is recovered in the PACU after elective total hip replacement. She was started on lisinopril 5 mg daily back in July after she established with Dr. Kaiser. She had not seen a doctor in 10 years prior to that after she has developed antibiotic-associated C. difficile colitis lasting for 6 weeks when she followed with Dr. Rendon. She was in a lot of pain prior to surgery. Blood pressures were reported 201/85 and they dropped after a little pain control. Blood pressure is currently 170/67. She skipped her medications this morning. PAST MEDICAL HISTORY: Hypertension and thyroid cancer, status post resection in 1978. MEDICATIONS: Include: 1. Lisinopril 5 mg daily. 2. Multivitamin 1 tab. 3. Acetaminophen p.r.n. ALLERGIES: Include IRON (cramps), PENICILLIN (vomiting/shortness of breath), and she is "sensitive" to a lot of different medications, and had a poor reaction to amoxicillin prior; she tolerated erythromycin. FAMILY HISTORY: Her mother at age 80, had a history of hypertension, CVA and congestive heart failure. Father of prostate cancer metastatic to the kidneys. Sister is in the room. SOCIAL HISTORY: She is a never smoker, no drinker, no drug use. She is retired from [employer] service. She is currently taking care of her disabled . She desires to be a full code. REVIEW OF SYSTEMS: A complete 14-point review of systems negative except as per HPI. PHYSICAL EXAM: General Appearance: No acute distress. Vital Signs: Temperature 97.7, pulse rate 57, respiratory rate 14, satting 96% on room air, blood pressure 170/67. HEENT: Normocephalic, atraumatic. Pupils are equal, round, and reactive to light. Extraocular motions intact. No scleral icterus. Lungs: Anteriorly clear to auscultation bilaterally with no wheezing, rales, or rhonchi. Cardiovascular: Regular rate and rhythm. No murmurs, rubs, or gallops. Abdomen: Soft, nontender, nondistended. Extremities: Warm, well perfused. No peripheral edema. Neuro: Alert and oriented x3. Moving all extremities. DIAGNOSTIC STUDIES/LAB DATA: Labs: None. Baseline creatinine is 0.74 back on 09/28/19. Review of preoperative EKG back on 09/14/19 showed sinus bradycardia, T-wave inversions in V1, no ST elevations or depressions, normal intervals, QTc of 415. Imaging: Pelvis x-ray and hip x-ray show postoperative changes. There is some expected subcutaneous emphysema and bones are mildly osteopenic. ASSESSMENT AND PLAN: Farhana Murphy is a 69-year-old female with limited medical care over the last 10 plus years with recently diagnosed hypertension, is now status post elective left total hip replacement with Dr. Shine. Her blood pressures were high in the setting of quite a bit of pain presurgery and we will have to closely monitor her pressures. She was as high as 201/85 and dropped down to the 120s with anesthesia. She has been restarted on lisinopril 5 mg q.a.m., hydralazine p.r.n., so her blood pressure is above 180s overnight. Rest of management as per Orthopedics with pain control with oxycodone/ acetaminophen, morphine, tramadol p.r.n. She has been started on apixaban 2.5 mg p.o. b.i.d. for DVT prophylaxis. Bowel regimen includes MiraLAX, Colace and Dulcolax suppositories. She is a full code. Thank you for this interesting consult. We will continue to follow along. [id number]/[facility] #: [id number] [facility]to
[2019-10-11] MEDS: Magnesium Hydroxide LIQ* 30 ML UDC PO SCH (21:53)
[2019-10-11] MEDS: Docusate CAP* 100 MG PO SCH (21:54)
[2019-10-11] MEDS: Clindamycin 600 MG/D5W BAG(*) 600 MG/50 ML BAG IV SCH (21:58)
[2019-10-12] MEDS: Lactated Ringers 1000 ML Bag* 1,000 ML IV SCH (05:07)
[2019-10-12] MEDS: Acetaminophen TAB* 325 MG PO SCH ×3 (05:53→14:15)
[2019-10-12] MEDS: Clindamycin 600 MG/D5W BAG(*) 600 MG/50 ML BAG IV SCH ×2 (05:55→15:18)
[2019-10-12 06:21] LABS: Hematocrit 32 % (35-47); Hemoglobin 11.2 g/dL (12.0-16.0); Mean Platelet Volume 7.3 fL (7.4-10.4); Platelet Count 195 10^3/uL (150-450)
[2019-10-12 06:40] LABS: BUN/Creatinine Ratio 16.4 (8-20); Calcium 9.1 mg/dL (8.6-10.3); EGFR African American 95.1 (>60); EGFR Non-African American 78.6 (>60); Potassium 4.3 mmol/L (3.5-5.0)
[2019-10-12] MEDS: Docusate CAP* 100 MG PO SCH (08:28)
[2019-10-12] MEDS: Magnesium Hydroxide LIQ* 30 ML UDC PO SCH (08:31)
[2019-10-12] MEDS ORDERED: Lisinopril TAB* 5 MG PO SCH (09:00)
[2019-10-12] MEDS ORDERED: Vitamin THERAPEUTIC TAB PO SCH (09:00)
[2019-10-12] MEDS ORDERED: Apixaban* 2.5 MG TAB PO SCH (09:00)
[2019-10-12] MEDS: oxyCODONE/Acetamin 5/325 MG* TAB PO PRN ×2 (09:38→13:34)
[2019-10-12 11:59] VITALS: BP 150/57
--- NOTE | 2019-10-12 12:21 | PN ---
Progress Note - Progress Note Date of Service: 10/12/19 SOAP: Subjective: []Pt seen and examined at bedside. She feels well without CP, SOB, dizziness or nausea. Objective: []Gen: NAD LLE: Left hip dressing CDI, thigh soft, DF/PF intact, Dp2+, sensation intact to light touch distally Calves supple and nontender without erythema, edema or palpable cords Assessment: []POD 1 sp left total hip replacement Plan: []WBAT PT/OT posterior hip precautions eliquis 2.5 mg po bid x 30 days post op Possible DC home later today after PM PT Vital Signs Temp 97.3 F 10/12/19 11:58 Pulse 58 10/12/19 11:58 Resp 16 10/12/19 11:58 BP 150/57 10/12/19 11:58 Pulse Ox 100 10/12/19 11:58 Intake & Output 10/11/19 10/12/19 10/12/19 18:59 06:59 18:59 Intake Total 640 Output Total 2050 300 Balance -1410 -300 Weight 167 lb 6.4 oz Intake: Oral 640 Output: Urine 300 Gomez 2049 Laboratory Last Values Hgb 11.2 g/dL (12.0-16.0) L 10/12/19 06:07 Hct 32 % (35-47) L 10/12/19 06:07 Plt Count 195 10^3/uL (150-450) 10/12/19 06:07 MPV 7.3 fL (7.4-10.4) L 10/12/19 06:07 Sodium 136 mmol/L (135-145) 10/12/19 06:07 Potassium 4.3 mmol/L (3.5-5.0) 10/12/19 06:07 Chloride 104 mmol/L (101-111) 10/12/19 06:07 Carbon Dioxide 26 mmol/L (22-32) 10/12/19 06:07 Anion Gap 6 mmol/L (2-11) 10/12/19 06:07 BUN 12 mg/dL (6-24) 10/12/19 06:07 Creatinine 0.73 mg/dL (0.51-0.95) 10/12/19 06:07 Est GFR ( Amer) 95.1 (>60) 10/12/19 06:07 Est GFR (Non-Af Amer) 78.6 (>60) 10/12/19 06:07 BUN/Creatinine Ratio 16.4 (8-20) 10/12/19 06:07 Glucose 99 mg/dL (70-100) 10/12/19 06:07 Calcium 9.1 mg/dL (8.6-10.3) 10/12/19 06:07
--- NOTE | 2019-10-12 14:41 | DS ---
Orthopedic Discharge Summary - Discharge Summary Date of Admission:10/11/19 Date of Discharge: 10/12/19 Date of Surgery: 10/11/19 Attending Orthopedic Provider: Dr Shine Pre-operative Diagnosis: Left hip osteoarthritis Operative Procedure: left total hip arthroplasty Disposition of Patient: Home with outpatient services Condition of Patient: stable History: TONYA SANCHEZ is a 69 year old F with years of increasingly severe left hip pain. Patient has failed conservative management and has elected to undergo a left total hip replacement Hospital Course: TONYA was admitted to [facility] on 10/11/19. Patient underwent a left total hip replacement without complication followed by a brief recovery in PACU and transfer to the Short Stay Surgical Unit in stable condition. Our hospitalist service, physical therapy and occupational therapy also participated in this patients care. Post-op day 1: patient was alert and in no acute distress. Dressing was clean, dry and intact. Operative extremity dorsiflexion and plantarflexion intact, sensation intact to light touch distally , DP2+. Prior to discharge: dressing was changed, incision was clean, dry and intact. Patient was deemed to be medically and orthopedically stable for discharge. Physical therapy goals were met. Home Medications Medication Instructions Recorded Confirmed Type Acetaminophen [Acetaminophen Extra 1 tab PO BID PRN 09/21/19 10/11/19 History Strength] Lisinopril TAB* [Prinivil TAB 5 5 mg PO QAM 09/21/19 10/11/19 History MG*] Multivitamin Multiple Vitamins 1 tab PO QAM 09/21/19 10/11/19 History Acetaminophen TAB* [Tylenol TAB*] 975 mg PO Q8HR tab 10/12/19 Rx Apixaban* [Eliquis*] 2.5 mg PO BID #60 tab 10/12/19 Rx Docusate CAP* [Colace Cap*] 100 mg PO BID PRN #90 cap 10/12/19 Rx oxyCODONE/Acetamin 5/325 MG* 2 tab PO Q4H PRN #70 tab MDD 10 10/12/19 Rx [Percocet 5/325 TAB*] Discharge Instructions following Orthopedic Surgery: Activity: * Weight Bearing as tolerated * Continue physical therapy and occupational therapy exercises as shown * Start outpatient physical therapy Hip replacements: Continue Hip Precautions- do not cross legs or bend greater than 90 degrees/squat Wound care: * OK to shower on post-op day 3, no bathing, swimming, or submerging wound. * Use gentle soap, pat dry. Cover with gauze, MERRITT wrap or tape. Call Orthopedic office for: * Increased drainage * Redness * Increased pain * Fever Go to ER with shortness of breath or chest pain. Diet: * Regular diet * Increase fluids and fiber to prevent constipation. * Continue to use stool softeners, call office if no bowel motion within 48 hours. Medications See Home Medication List in your packet for medications that you should take after discharge. DVT Prophylaxis: Eliquis Dosin.5 mg, 1 tab every 12 hours x 30 days. Increases bleeding tendency Pain Control: Percocet Dosin/325 mg 1-2 tabs by mouth every 4-6 hours as needed for pain. Maximum of 10 tabs per day. Hold for sedation, wean off as soon as pain allows. Please note that Percocet contains Tylenol (acetaminophen). Maximum daily dose of Tylenol is 4000 mg from all sources. Antibiotics are required prior to any dental work. FOLLOW UP: Follow up with [Rl] Within 10-14 days, call for appointment Please call our office with any questions or concerns ([phone]) [facility]
[2019-10-13] MEDS ORDERED: Bisacodyl SUPP* 10 MG SUPP PR PRN (16:14)
== END 2019-10-12 16:10 | disposition home or self-care (01) | DRG 470 ==
LOC: AA 10:33 → SSU 17:45
PROVIDERS: ADMIT Orthopaedic Surgery Adult Reconstructive Orthopaedic Surgery; ATTEND Orthopaedic Surgery Adult Reconstructive Orthopaedic Surgery
PROC: 0SRB04A Replacement of Left Hip Joint with Ceramic on Polyethylene Synthetic Substitute, Uncemented, Open Approach (ICD-10-PCS; principal; 2019-10-11 13:45)
DX: M16.12 Unilateral primary osteoarthritis, left hip (principal); I10 Essential (primary) hypertension; Z85.850 Personal history of malignant neoplasm of thyroid; Z88.0 Allergy status to penicillin; Z87.891 Personal history of nicotine dependence; Z28.21 Immunization not carried out because of patient refusal; Z91.041 Radiographic dye allergy status; Z79.899 Other long term (current) drug therapy
CPT/HCPCS: 36415; 72170; 80048; 85014; 85018; 85049; 88304; 88311; A9270-GY; C1713; C1776; G8978-GP-CJ; G8979-GP-CI; J1100; J1170; J1885; J2250; J2405; J2704; J2795